=== PATIENT | female | born 1985 | race Caucasian/White ===

== ENCOUNTER → 2017-01-14 | Outpatient (CLI) | payer BC, OTHER ==
[~2017-01-14] MED LIST: MEGE20TA3 PO; OMEP40CA2 PO
[2017-01-14 19:28] LABS: BASO % 0.3 % (0.0-1.0); EOS # 0.1 K/mm3 (0.0-0.50); EOS % 1.1 % (0.0-3.0); LARGE UNSTAINED CELL # 0.1 K/mm3 (0.0-0.4); LARGE UNSTAINED CELL % 1.5 % (0.0-4.0); LYMPH % 33.5 % (24.0-44.0); MEAN CORPUSCULAR HEMOGLOBIN 32.4 pg (27.0-33.0); MEAN CORPUSCULAR HGB CONC 34.5 g/dl (32.0-36.5); MEAN CORPUSCULAR VOLUME 93.9 fl (80.0-96.0); MONO # 0.6 K/mm3 (0.0-0.8); MONO % 6.7 % (0.0-5.0); NEUTROPHILS # 4.9 K/mm3 (1.8-7.7); NEUTROPHILS % 56.8 % (36.0-66.0); PLATELET COUNT, AUTOMATED 283 k/mm3 (150-450); RED CELL DISTRIBUTION WIDTH 12.9 % (11.5-14.5); WHITE BLOOD COUNT 8.6 K/mm3 (4.0-10.0)
[2017-01-14 21:44] LABS: ALBUMIN 4.3 GM/DL (3.2-5.2); ALBUMIN/GLOBULIN RATIO 1.26 (1.00-1.93); ALKALINE PHOSPHATASE 96 U/L (45-117); ALT/SGPT 29 U/L (12-78); ANION GAP 10 MEQ/L (8-16); AST/SGOT 14 U/L (15-37); BILIRUBIN,TOTAL 0.5 MG/DL (0.2-1.0); BLOOD UREA NITROGEN 8 MG/DL (7-18); CALCIUM LEVEL 9.1 MG/DL (8.5-10.1); CARBON DIOXIDE LEVEL 25 MEQ/L (21-32); CHLORIDE LEVEL 109 MEQ/L (98-107); CREATININE FOR GFR 0.77 MG/DL (0.55-1.02); FREE T4 1.02 NG/DL (0.76-1.46); GLOMERULAR FILTRATION RATE > 60.0 (>60); GLUCOSE, FASTING 85 MG/DL (70-105); POTASSIUM SERUM 4.6 MEQ/L (3.5-5.1); SODIUM LEVEL 144 MEQ/L (136-145); TOTAL PROTEIN 7.7 GM/DL (6.4-8.2)
== END ==
LOC: M SMT 13:49
PROVIDERS: ATTEND Family Medicine
DX: R53.83 Other fatigue (principal)

== ENCOUNTER → 2017-01-28 | Outpatient (CLI) | payer OTHER ==
--- NOTE | 2017-01-28 08:15 | REP ---
Right upper quadrant sonography: History: Right upper quadrant pain. Findings: Scanning through right upper quadrant of the abdomen demonstrates a normal sized thin-walled gallbladder containing a 1.2 cm mobile calculus consistent with cholelithiasis. The common bile duct is normal measuring 0.2 cm in greatest diameter. No focal liver lesion is seen. Limited views of the pancreas show no abnormality. There is no evidence of ascites or right renal abnormality. The right kidney measures 12.0 x 5.3 x 4.3 cm. Impression: Cholelithiasis. Signed by Wilner Hope MD 01/28/2017 04:21 P
== END ==
LOC: M RAD 06:57
PROVIDERS: ATTEND Family Medicine
DX: R10.9 Unspecified abdominal pain (principal)

== ENCOUNTER 2017-03-05 12:37 | Day surgery (SDC) | payer OTHER ==
[~2017-03-05] VITALS: Ht 160 cm; Wt 93.0 kg
[2017-03-05] MEDS ORDERED: LR 1,000 ML IV ONE (13:00)
[2017-03-05] MEDS ORDERED: ceFAZolin SOD 1 GM in D5W MINI-BAG PLUS 50 ML IV ONE (13:00)
[2017-03-05 13:58] LABS: CONTROL LINE UCG INT CTR LINE PRESENT
[2017-03-05] MEDS ORDERED: BUPIVACAINE/EPIN 0.25% 30 ML VIAL As Ordered ONE (14:52)
[2017-03-05] MEDS ORDERED: dexameTHASONE 4 MG/ML 1ML VIAL (J1100) As Ordered ONE (15:31)
[2017-03-05] MEDS ORDERED: LIDOCAINE 2% INJ 100 MG/5 ML SDV (FOR ANES.) As Ordered ONE (15:31)
[2017-03-05] MEDS ORDERED: fentaNYL 250 MCG/5 ML INJECTION (J3010) As Ordered ONE (15:31)
[2017-03-05] MEDS ORDERED: ONDANSETRON 4MG/2ML VIAL (J2405) As Ordered ONE (15:31)
[2017-03-05] MEDS ORDERED: ROCURONIUM BROMIDE 50 MG/5 ML VIAL/SYRINGE As Ordered ONE ×2 (15:31→15:35)
[2017-03-05] MEDS ORDERED: PROPOFOL 200 MG/20 ML VIAL As Ordered ONE ×2 (15:31→16:19)
[2017-03-05] MEDS ORDERED: KETOROLAC 60 MG/2 ML VIAL (J1885) As Ordered ONE (15:31)
[2017-03-05] MEDS ORDERED: MIDAZOLAM INJ 2 MG/2 ML VIAL (J2250) As Ordered ONE (15:31)
[2017-03-05] MEDS ORDERED: NEOSTIGMINE 1MG/ML 5 ML SYRINGE (J2710) As Ordered ONE (15:45)
[2017-03-05] MEDS ORDERED: GLYCOPYRROLATE INJ 0.2 MG/ML 2 ML VIAL As Ordered ONE (15:45)
[2017-03-05] MEDS ORDERED: fentaNYL 100 MCG/2 ML INJECTION (J3010) As Ordered ONE (16:18)
[2017-03-05] MEDS ORDERED: ONDANSETRON 4MG/2ML VIAL (J2405) IV PRN ×2 (17:00→17:15)
[2017-03-05] MEDS ORDERED: LR 1,000 ML IV SCH ×2 (17:00→17:15)
[2017-03-05] MEDS ORDERED: fentaNYL 100 MCG/2 ML INJECTION (J3010) IV PRN (17:00)
[2017-03-05] MEDS: PERCOCET 5MG/325MG TAB PO PRN ×2 (17:12→18:31)
[2017-03-05] MEDS ORDERED: MORPHINE 2 MG/ML 1ML SYRINGE IV PRN (17:15)
[2017-03-05] MEDS ORDERED: NORCO, ANEXSIA 5/325MG TABLET (HYDROcodone/ACETAMINOPHEN) PO PRN (17:15)
[2017-03-05 19:30] VITALS: BP 134/74
[2017-03-05] MEDS ORDERED: KETOROLAC 30 MG/ML VIAL (J1885) IV SCH (22:00)
--- NOTE | 2017-03-19 05:31 | RO ---
DATE OF PROCEDURE: 03/05/2017 PREOPERATIVE DIAGNOSIS: Symptomatic gallstones. POSTOPERATIVE DIAGNOSIS: Symptomatic gallstones. PROCEDURE: Laparoscopic cholecystectomy. SURGEON: Serge Og MD DIAMOND DIE DRILLER: ANESTHESIA: General endotracheal anesthesia ESTIMATED BLOOD LOSS: Minimal. FLUIDS: Crystalloid. DESCRIPTION OF PROCEDURE: The patient was brought to the operating room and was given general anesthesia. After adequate anesthesia and preoperative antibiotics were given, the patient was prepped and draped in the usual sterile fashion. Next, a supraumbilical incision was made with skin knife. Blunt dissection was carried down to fascia. Fascia was grasped with Tran clamps, elevated and a Veress needle placed into the abdominal cavity, insufflated to 15 mm pressure. A dilating 10 mm trocar was placed at the umbilicus and under direct visualization an epigastric and two lateral trocars were placed. Next, the gallbladder was seen, grasped and retracted superiorly. There were some adhesions of the omentum up against the liver edge, which was taken down with hook cautery, as well as omentum up against the neck of the gallbladder, which was taken down with hook cautery. Eventually this was cleared of surrounding peritoneum laterally and then working anteriorly up to where the cystic artery was well visualized. Once the neck of the gallbladder was well visualized, the cystic artery was well visualized, further dissection on the lateral aspect was performed and then a good window behind the neck of the gallbladder was created and eventually after dissecting out these areas with hook cautery as well as some gentle blunt dissection, critical view of safety was appreciated. Once this was achieved, the cystic artery was clipped proximally and distally and transected, and then an even larger view posterior to the neck of the gallbladder was visualized and this was followed distally down onto the cystic duct/neck of the gallbladder area further to where the cystic duct tapered quite nicely after coming off the neck of the gallbladder. This was clipped proximally, distally and transected, and then the gallbladder was taken from the gallbladder bed using electrocautery. This was placed in an EndoCatch bag, brought out through the umbilical site. The right upper quadrant was copiously irrigated until clear. All incisions were closed for with #4-0 Vicryl once the umbilical site was closed with #0 Vicryl on the fascial layer, and Steri-Strips and a dry sterile dressing were applied. The patient was awakened, extubated, brought to the recovery room awake, alert and hemodynamically stable. Sponge and needle counts correct times two.
== END 2017-03-05 19:45 | disposition home or self-care (01) ==
LOC: M SDC 12:37
PROVIDERS: ATTEND Surgery
DX: K80.20 Calculus of gallbladder without cholecystitis without obstruction (principal); K21.9 Gastro-esophageal reflux disease without esophagitis; Z79.899 Other long term (current) drug therapy
CPT/HCPCS: 47562; 84703; 88304; A6024; J0690; J1100; J1885; J2250; J2405; J2710; J3010

== ENCOUNTER → 2018-02-14 | Outpatient (REF) | payer SELFPAY | LOC: M LAB REF 15:04 | DX: R10.84 Generalized abdominal pain (principal); R19.5 Other fecal abnormalities ==

== ENCOUNTER → 2018-04-30 | Outpatient (CLI) | payer OTHER | LOC: M SMT 14:16 | DX: R19.7 Diarrhea, unspecified (principal); R10.9 Unspecified abdominal pain; R14.0 Abdominal distension (gaseous); K62.5 Hemorrhage of anus and rectum; Z53.8 Procedure and treatment not carried out for other reasons ==

== ENCOUNTER → 2018-05-01 | Outpatient (CLI) | payer OTHER ==
[2018-05-01 17:29] LABS: C REACTIVE PROTEIN QUANTITATIV < 0.30 MG/DL (0.00-0.30)
[2018-05-01 17:57] LABS: ERYTHROCYTE SEDIMENTATION RATE 8 mm/hr (0-20)
[2018-05-06 00:07] LABS: ANCA-ATYPICAL <1:20 titer (Neg:<1:20); ANTI-SACCHAROMYCES CEREV. IgA <20.0 Units (0.0-24.9); ANTI-SACCHAROMYCES CEREV. IgG <20.0 Units (0.0-24.9); CYTOPLASMIC NEUTROP AB ANCA-C <1:20 titer (Neg:<1:20); PERINUCLEAR AB ANCA-P <1:20 titer (Neg:<1:20); TISSUE TRANSGLUTAMINASE IgA <2 U/mL (0-3)
== END ==
LOC: M SMT 14:14
DX: R19.7 Diarrhea, unspecified (principal); R10.9 Unspecified abdominal pain; R14.0 Abdominal distension (gaseous); K62.5 Hemorrhage of anus and rectum
CPT/HCPCS: 82784

== ENCOUNTER 2018-12-02 11:29 | Emergency (ER) | payer OTHER ==
[~2018-12-02] VITALS: Ht 160 cm; Wt 90.8 kg
[2018-12-02] MEDS ORDERED: AUGM875T28 PO (14:33)
[2018-12-02 14:37] VITALS: BP 125/77
== END 2018-12-02 14:42 | disposition home or self-care (01) ==
LOC: M ED 11:29
DX: S01.311A Laceration without foreign body of right ear, initial encounter (principal); S01.511A Laceration without foreign body of lip, initial encounter; S00.83XA Contusion of other part of head, initial encounter; Y04.0XXA Assault by unarmed brawl or fight, initial encounter; Y92.218 Other school as the place of occurrence of the external cause; Y93.89 Activity, other specified; Y99.0 Civilian activity done for income or pay; Z79.818 Long term (current) use of other agents affecting estrogen receptors and estrogen levels; Z79.899 Other long term (current) drug therapy

== ENCOUNTER → 2020-05-05 | Outpatient (REF) | payer OTHER ==
[~2020-05-05] MED LIST changes: +AUGM875T28 PO; -OMEP40CA2 PO; +OMEP40CA97 PO
[2020-05-05 16:31] LABS: HEMOGLOBIN 12.7 g/dl (12.0-15.5); MEAN CORPUSCULAR HEMOGLOBIN 30.5 pg (27.0-33.0); MEAN CORPUSCULAR HGB CONC 32.6 g/dl (32.0-36.5); MEAN CORPUSCULAR VOLUME 93.5 fl (80.0-96.0); PLATELET COUNT, AUTOMATED 307 10^3/uL (150-450); RED BLOOD COUNT 4.17 10^6/uL (4.00-5.40); WHITE BLOOD COUNT 10.3 10^3/uL (4.0-10.0)
[2020-05-05 17:25] LABS: GLUCOSE CHALLENGE TEST 1 HOUR 95 MG/DL (LESS THAN 140)
[2020-05-05 18:20] LABS: HEPATITIS C VIRUS ABY INDEX 0.1 INDEX (<0.8); HIV 1&2 SCREEN CENTAUR NEGATIVE (NEGATIVE)
== END ==
LOC: M PLALAB 12:36
PROVIDERS: ATTEND Obstetrics & Gynecology
DX: O99.211 Obesity complicating pregnancy, first trimester (principal)

== ENCOUNTER → 2020-05-31 | Outpatient (REF) | payer OTHER | LOC: M SFHCWAGY 09:49 | PROVIDERS: ATTEND Obstetrics & Gynecology | DX: Z34.02 Encounter for supervision of normal first pregnancy, second trimester (principal) ==

== ENCOUNTER → 2020-06-06 | Outpatient (REF) | payer OTHER | LOC: M SFHCWAGY 16:55 | PROVIDERS: ATTEND Obstetrics & Gynecology | DX: Z34.02 Encounter for supervision of normal first pregnancy, second trimester (principal); Z3A.00 Weeks of gestation of pregnancy not specified ==

== ENCOUNTER → 2020-07-11 | Outpatient (CLI) | payer OTHER ==
--- NOTE | 2020-07-11 13:01 | REP ---
INDICATION: ANATOMY COMPARISON: None. TECHNIQUE: Transabdominal obstetrical ultrasound with color Doppler evaluation. FINDINGS: Examination demonstrates a single live intrauterine in transverse (head to maternal left) presentation. motion is identified by technologist. Placenta is noted anterior and grade 0 without evidence for placenta previa or abruption. Amniotic fluid volume is normal. Cervix measures 3.4 cm in length and appears closed.. Gestational age by LMP 20 weeks 3 days with BERNARDA 11/25/2020. Gestational age by current measurements 20 weeks 3 days with BERNARDA 11/25/2020. FHR equals 158 beats per minute. BPD: 4.9 cm 20 weeks 5 days HC: 18.1 cm 20 weeks 3 days AC: 15.2 cm 20 weeks 3 days FL: 3.3 cm 20 weeks 3 days HL: 3.1 cm 20 weeks 3 days HC/AC: 1.19 Estimated weight 354 grams (48thpercentile). Anatomical assessment demonstrates normal structures including cranium, choroid plexus, cavum, cerebellum/posterior fossa, facial features, lungs, diaphragm, stomach, cord insertion/three-vessel cord, kidneys/bladder, and extremities. Limited evaluation of the heart and spine. IMPRESSION: Single live intrauterine in transverse lie demonstrating appropriate estimated weight and growth. Limited evaluation of the heart and spine. Remainder of the anatomical assessment is complete and normal. <Electronically signed by Jorge Slater > 07/11/20 [id number]
== END ==
LOC: M WHC 09:53
PROVIDERS: ATTEND Obstetrics & Gynecology
DX: Z34.82 Encounter for supervision of other normal pregnancy, second trimester (principal)

== ENCOUNTER → 2020-07-26 | Outpatient (CLI) | payer OTHER | LOC: M WHC 13:12 | PROVIDERS: ATTEND Obstetrics & Gynecology | DX: Z34.92 Encounter for supervision of normal pregnancy, unspecified, second trimester (principal); Z3A.22 22 weeks gestation of pregnancy; Z53.9 Procedure and treatment not carried out, unspecified reason ==

== ENCOUNTER → 2020-08-01 | Outpatient (CLI) | payer OTHER ==
--- NOTE | 2020-08-02 07:09 | REP ---
INDICATION: F/U ANATOMY COMPARISON: 07/11/2020 TECHNIQUE: Transabdominal obstetrical ultrasound with color Doppler evaluation. FINDINGS: Examination demonstrates a single live intrauterine in cephalic presentation. motion is identified by technologist. Placenta is noted anterior and grade 1 without evidence for placenta previa or abruption. Amniotic fluid volume is normal. Cervix measures 3.3 cm in length and appears closed.. Gestational age by LMP 23 weeks 3 days with BERNARDA 11/25/2020. Gestational age by current measurements 24 weeks 2 days with BERNARDA 11/19/2020. FHR equals 134 beats per minute. Estimated weight 706 grams (90thpercentile). Anatomical assessment demonstrates normal structures including four-chamber heart/ventricular outflow tracts and spine. IMPRESSION: Single live intrauterine in cephalic presentation demonstrating appropriate interval growth. In conjunction with prior examination anatomical assessment is complete and normal. <Electronically signed by Jorge Slater > 08/02/20 [id number]
== END ==
LOC: M WHC 12:26
PROVIDERS: ATTEND Obstetrics & Gynecology
DX: Z34.92 Encounter for supervision of normal pregnancy, unspecified, second trimester (principal); Z3A.24 24 weeks gestation of pregnancy

== ENCOUNTER → 2020-08-19 | Outpatient (REF) | payer OTHER ==
[2020-08-19 15:32] LABS: HEMATOCRIT 33.7 % (36.0-47.0); HEMOGLOBIN 10.9 g/dl (12.0-15.5); MEAN CORPUSCULAR HEMOGLOBIN 31.5 pg (27.0-33.0); MEAN CORPUSCULAR HGB CONC 32.3 g/dl (32.0-36.5); MEAN CORPUSCULAR VOLUME 97.4 fl (80.0-96.0); PLATELET COUNT, AUTOMATED 252 10^3/uL (150-450); RED BLOOD COUNT 3.46 10^6/uL (4.00-5.40); WHITE BLOOD COUNT 8.4 10^3/uL (4.0-10.0)
== END ==
LOC: M PLALAB 12:53
PROVIDERS: ATTEND Obstetrics & Gynecology
DX: O99.212 Obesity complicating pregnancy, second trimester (principal)

== ENCOUNTER → 2020-10-26 | Outpatient (REF) | payer OTHER | LOC: M SFHCWAGY 12:53 | PROVIDERS: ATTEND Advanced Practice Midwife | DX: Z34.03 Encounter for supervision of normal first pregnancy, third trimester (principal); Z36.85 Encounter for antenatal screening for Streptococcus B ==

== ENCOUNTER → 2020-11-01 | Outpatient (CLI) | payer OTHER ==
--- NOTE | 2020-11-01 13:37 | REP ---
INDICATION: SIZE>DATES, GROWTH COMPARISON: 08/01/2020 TECHNIQUE: Transabdominal obstetrical ultrasound with color Doppler evaluation. FINDINGS: Examination demonstrates a single live intrauterine in cephalic presentation. motion is identified by technologist. Placenta is noted anterior and grade 2 without evidence for placenta previa or abruption. Amniotic fluid volume is normal. Cervix measures 3.0 cm in length and appears closed.. Gestational age by LMP and 1st U/S 36 weeks 4 days with BERNARDA 11/25/2020. Gestational age by current measurements 37 weeks 3 days with BERNARDA 11/19/2020. FHR equals 136 beats per minute. BPD: 9.5 cm at 30 weeks 6 days HC: 33.1 cm at 37 weeks 5 days AC: 33.2 cm at 37 weeks 0 days FL: 7.1 cm at 36 weeks 2 days HL: 6.4 cm at 37 weeks 2 days HC/AC: 1.00 Estimated weight 3130 grams (69thpercentile). DRU: 16.5 cm IMPRESSION: Single live intrauterine in cephalic presentation demonstrating appropriate estimated weight and growth. <Electronically signed by Jorge Slater > 11/01/20 [id number]
== END ==
LOC: M PLAIMG 11:31
PROVIDERS: ATTEND Advanced Practice Midwife
DX: O26.843 Uterine size-date discrepancy, third trimester (principal); Z3A.36 36 weeks gestation of pregnancy

== ENCOUNTER → 2020-11-01 | Outpatient (REF) | payer OTHER ==
[2020-11-01 18:02] LABS: CREATININE,RANDOM URINE 52.7 MG/DL; TOTAL PROTEIN,RANDOM URINE < 5.0 MG/DL (0.0-12.0)
[2020-11-01 18:03] LABS: ALT/SGPT 13 U/L (12-78); BILIRUBIN,TOTAL 0.2 MG/DL (0.2-1.0); CREATININE FOR GFR 0.44 MG/DL (0.55-1.30); GLOMERULAR FILTRATION RATE > 60.0 (>60); LDH LACTATE DEHYDROGENASE 165 U/L (84-246); URIC ACID 3.9 MG/DL (2.6-6.0)
[2020-11-01 18:14] LABS: HEMATOCRIT 35.1 % (36.0-47.0); HEMOGLOBIN 11.6 g/dl (12.0-15.5); MEAN CORPUSCULAR HEMOGLOBIN 30.8 pg (27.0-33.0); MEAN CORPUSCULAR VOLUME 93.1 fl (80.0-96.0); PLATELET COUNT, AUTOMATED 219 10^3/uL (150-450); RED BLOOD COUNT 3.77 10^6/uL (4.00-5.40); WHITE BLOOD COUNT 7.7 10^3/uL (4.0-10.0)
[2020-11-01 18:26] LABS: PROTEIN, URINE AUTO NEGATIVE (NEGATIVE)
== END ==
LOC: M PLALAB 14:46
PROVIDERS: ATTEND Obstetrics & Gynecology
DX: O16.9 Unspecified maternal hypertension, unspecified trimester (principal)

== ENCOUNTER → 2020-11-18 | Outpatient (CLI) | payer OTHER | LOC: M LABSMTC 13:59 | PROVIDERS: ATTEND Specialist | DX: Z11.52 Encounter for screening for COVID-19 (principal); Z3A.39 39 weeks gestation of pregnancy ==

== ENCOUNTER → 2020-11-25 | Outpatient (CLI) | payer OTHER | LOC: M LABSMTC 14:02 | PROVIDERS: ATTEND Specialist | DX: Z20.822 Contact with and (suspected) exposure to COVID-19 (principal) ==

== ENCOUNTER 2020-11-28 06:10 | Inpatient (IN) | payer OTHER ==
[2020-11-28] VITALS (32 sets, daily range): BP systolic 109–156; BP diastolic 53–88
[~2020-11-28] VITALS: Ht 160 cm; Wt 118.0 kg
[2020-11-28] MEDS ORDERED: PRENTAB9 PO (07:00)
[2020-11-28] MEDS ORDERED: ZOLO25TA PO (07:08)
[2020-11-28] MEDS ORDERED: UNIS25TA3 PO (07:11)
[2020-11-28] MEDS ORDERED: ACET325C5 PO (07:11)
[2020-11-28] MEDS ORDERED: PROBCAP14 PO (07:11)
[2020-11-28] MEDS ORDERED: CLAR5TAB11 PO (07:11)
--- NOTE | 2020-11-28 07:50 | IPNPDOC ---
Text Note Date of Service The patient was seen on 11/28/20. NOTE Triage Note Franci is a 35yo with SIUP at 40w3d by lmp c/w 10wk u/s presenting to L&D for painful ctx. She states they started around 0300 this morning and are getting stronger, becoming more "unbearable". No LOF, no vaginal bleeding. Feels good movement. PMhx/PNC complicated by obesity (starting BMI 36), anxiety on zoloft and buspar, palpitations referred to cardiology Vitals wnl, afebrile Gen: WDWN, breathing with ctx Abdomen: soft, gravid, NTTP SCE: 2/80/-2, mid, soft Cat I FHRT with bl 130, +accels, -decels, mod ursula [place]: difficult to trace Assessment: Franci is a 35yo with SIUP at 40w3d by lmp c/w 10wk u/s having ctx, possibly in early labor. Vitals wnl, exam benign. Reassuring status. SCE 2/80/-2. Plan: -Re-check SCE in 2 hours, if there is cervical change, will admit -CEFM -vitals standard of care -report given to CNM Hao at change of shift Génesis Myles MD VS,Micheal, I+O VSMicheal I+O Vital Signs Date Time Temp Pulse Resp B/P (MAP) Pulse Ox O2 Delivery O2 Flow Rate FiO2 11/28/20 06:40 97.8 82 18 137/75 (95) Génesis Myles MD November 28, 2020 07:50
[2020-11-28] MEDS ORDERED: LACTATED RINGER'S 1000 ML IV STA (11:12)
[2020-11-28] MEDS ORDERED: TRANEXAMIC ACID INJection 1,000 MG in NS 100 ML IV PRN (11:15)
[2020-11-28] MEDS ORDERED: CARBOPROST TROMETHAMINE 250 MCG/ML AMP IM PRN (11:15)
[2020-11-28] MEDS ORDERED: LIDOCAINE 1% MDV 20ML VIAL INFIL PRN (11:15)
[2020-11-28] MEDS ORDERED: METHYLERGONOVINE MALEATE 0.2 MG/ML VIAL (J2210) IM PRN (11:15)
--- NOTE | 2020-11-28 11:19 | HPEPDOC ---
Obstetrical History & Physical General Date of Admission 11/28/20 Primary Care Physician: JHONATHAN WILSON CNM History of Present Illness Franci is a 35-year-old female who is a at 40.3 weeks gestation with an BERNARDA of 11/25/20 based on her LMP. She initiated care in her first trimester with [facility]. Her has been complicated by obesity, excessive weight gain, and anxiety. She was started on Zoloft and Buspar for her anxiety. Weight gain was greater than 50 lbs. She presents to L&D with complaints of contractions. She reports active movement. She denies leaking of fluid or vaginal bleeding. Chief Complaint: Active Labor Information Provided By: Patient Age: 35 : 1 Term: 0 Pre-term: 0 Abortions: 0 Livin Care Care: Good Care Dating Final EDC: November 25, 2020 Final EDC by: LMP EGA at Admission: 40.3 Antepartum Course Height (inches): 34 Pre- weight (lbs.): 208 Admission Weight (lbs.): 267 Change in Weight (lbs.): 59 Past Medical History Past Obstetrical History : Past Obstetrical History: [employer]img[employer] History: Endometriosis, Human papillomavirus(HPV) Past Medical History Medical History chronic constipation endometriosis Surgical History: Dilatation and Curettage, Gallbladder, Other (left ankle surgery) Family History Significant Family History: Heart disease Social History Marital Status: Family situation: Spouse/partner home Psychosocial History: Anxiety * Smoker: non-smoker Alcohol: Denies Drugs: denies Allergies Coded Allergies: No Known Allergies (Unverified , 02/27/17) Medications Scheduled Doxylamine Succinate (Unisom Sleep Aid) 25 Mg Tablet, 1 TAB PO QPM Lactobacillus Acidophilus (Probiotic) 1 Each Capsule, 1 CAP PO TID Loratadine (Claritin) 5 Mg Tab.rapdis, 1 TAB PO DAILY for allergy symptoms No.137/Iron/Folic Acd ( Vitamin Tablet) 1 Each Tablet, 1 TAB PO DAILY Sertraline Hcl (Zoloft) 25 Mg Tablet, 25 MG PO DAILY Miscellaneous Medications Acetaminophen (Tylenol) 325 Mg Capsule, 325 MG PO Physical Examination Physical Examination GENERAL: Alert and oriented times three. BREAST: . ABDOMEN: Gravid and non-tender to touch. FETUS: Is vertex (VTX) by sterile vaginal examination (SVE), fetus is vertex (VTX) by David. EFW 3600 grams. LUNGS: Clear to auscultation (CTA). EXTREMITIES: 1+ pitting edema. No clonus. Deep tendon reflexes (DTRs) + 2. Vital Signs/I&O Vital Signs Date Time Temp Pulse Resp B/P (MAP) Pulse Ox O2 Delivery O2 Flow Rate FiO2 11/28/20 09:16 98.6 80 18 139/88 (105) Pertinent Laboratoy Data Blood Type: O+ RBC Antibody Screen: Negative HIV: Negative Hepatitis B: Negative Hepatitis C: Negative Rapid Plasma Reagin: Nonreactive Rubella: Immune Chlamydia/Gonorrhea: Negative Group B Streptococcus: Negative Glucose Tolerance Test: 96 Vaginal Examination Dilation: 4 cm Effacement: 100% Station: 0 Presentation: Cephalic presentation Position: Vertex (occiput) Assessment Heart Rate (FHR): 130 Variability: Moderate Accelerations: Positive Decelerations: None Tocometer Contractions: Yes Frequency: every 2-5 min. Assessment/Plan Assessment IUP at 40.3 weeks gestation active labor GBS negative Category I FHR tracing Plan Admit to L&D. OOB ad nico. Diet: clears. Group B Streptococcus (GBS) negative. Labs and intravenous (IV) per unit protocol. Anesthesia consult per patient's request. Counseled on IV Pitocin for augmentation if needed. Lactated Ringers (LR): Bolus 800 mL prior to epidural, then at 125 mL/hr. Anticipate cervical change. C-S as appropriate. JHONATHAN WILSON CNM November 28, 2020 11:19
[2020-11-28 12:52] LABS: HEMOGLOBIN 11.7 g/dl (12.0-15.5); MEAN CORPUSCULAR HEMOGLOBIN 31.1 pg (27.0-33.0); MEAN CORPUSCULAR HGB CONC 33.4 g/dl (32.0-36.5); MEAN CORPUSCULAR VOLUME 93.1 fl (80.0-96.0); PLATELET COUNT, AUTOMATED 199 10^3/uL (150-450); RED BLOOD COUNT 3.76 10^6/uL (4.00-5.40); WHITE BLOOD COUNT 8.8 10^3/uL (4.0-10.0)
[2020-11-28] MEDS ORDERED: FENTANYL 2MCG/ML ROPIVACAINE 0.2% IN 0.9% NACL 100ML IVBAG As Ordered ONE (16:51)
[2020-11-28] MEDS ORDERED: ePHEDrine SULFATE 25 MG/5 ML(5MG/ML) SYRINGE IV PRN (17:10)
[2020-11-28] MEDS ORDERED: REFRIGERATOR IV KEYS XX PRN (17:10)
[2020-11-28] MEDS ORDERED: NALOXONE INJ 0.4MG/1ML VIAL (J2310 PER 1MG) IV PRN (17:10)
[2020-11-28] MEDS ORDERED: ONDANSETRON 4MG/2ML VIAL IV PRN (17:10)
[2020-11-28] MEDS ORDERED: LACTATED RINGER'S 1000 ML IV PRN (17:10)
[2020-11-28] MEDS ORDERED: EPIDURAL COMMENT XX SCH (17:10)
[2020-11-28] MEDS ORDERED: EPIDURAL/PCA KEYS XX PRN (17:10)
[2020-11-28] MEDS ORDERED: diphenhydrAMINE 50MG/ML VIAL (J1200) IV PRN (17:10)
[2020-11-28] MEDS: FENTANYL/ROPIVACAINE/NACL BAG 100 ML EPIDURAL SCH (17:24)
[2020-11-28] MEDS: LR 1,000 ML IV SCH (17:40)
[2020-11-28] MEDS ORDERED: OXYTOCIN 30 UNITS IN 0.9% NaCl 500ML IV BAG (J2590) As Ordered ONE (19:48)
[2020-11-28] MEDS ORDERED: OXYTOCIN DRIP 30 UNITS in IV 1 EA IV SCH (19:50)
--- NOTE | 2020-11-28 20:07 | IPNPDOC ---
Obstetrical Progress Note Date of Service November 28, 2020 Subjective Patient reports she is comfortable with her epidural. Objective Vital Signs Date Time Temp Pulse Resp B/P (MAP) Pulse Ox O2 Delivery O2 Flow Rate FiO2 11/28/20 18:49 75 20 118/57 (77) 11/28/20 17:39 98.2 Assessment Heart Rate (FHR): 130 Variability: Moderate Accelerations: Positive Decelerations: None Heart Rate Tracing: Category I Tocometer Contractions: Yes Frequency: regular Sterile Vaginal Examination Dilation: 5 cm Effacement (%): 100% Station: -1 Postion/Presentation: Cephalic presentation Assessment and Plan Status: Reassuring Group B Streptococcus: Negative Anticipate: Vaginal Delivery Additional Comments IV Pitocin to be started per order as soon as we can monitor contractions. JHONATHAN WILSON CNM November 28, 2020 20:07
--- NOTE | 2020-11-28 22:45 | IPNPDOC ---
Obstetrical Progress Note Date of Service November 28, 2020 Subjective Patient is comfortable with her epidural. Objective Vital Signs Date Time Temp Pulse Resp B/P (MAP) Pulse Ox O2 Delivery O2 Flow Rate FiO2 11/28/20 22:24 72 18 141/66 (91) 11/28/20 21:12 99.7 Assessment Heart Rate (FHR): 130 Variability: Moderate Accelerations: Positive Decelerations: None Heart Rate Tracing: Category I Tocometer Contractions: Yes Frequency: other (2-7 minutes) Sterile Vaginal Examination Dilation: 5 cm (5-6 cm) Effacement (%): 100% Station: 0 Postion/Presentation: Cephalic presentation Assessment and Plan Age: 35 : 1 Term: 0 Pre-term: 0 Abortions: 0 Livin EGA at Admission: 40.3 Status: Reassuring Group B Streptococcus: Negative Anticipate: Vaginal Delivery Additional Comments Internals placed due to difficulty monitoring FHR and contractions. Moderate amount of meconium noted with AROM. Patient tolerated well. IV Pitocin to be started back up if needed for contractions to be every 2-3 minutes. JHONATHAN WILSON CNM November 28, 2020 22:45
[2020-11-28] MEDS ORDERED: SERTRALINE HCL 25 MG TABLET PO SCH (23:30)
[2020-11-29] VITALS (29 sets, daily range): BP systolic 121–166; BP diastolic 59–104
--- NOTE | 2020-11-29 00:27 | IPNPDOC ---
Obstetrical Progress Note Date of Service November 29, 2020 Subjective Patient reports she is feeling pressure and her catheter. States she doesn't tolerate pain very well. Objective Vital Signs Date Time Temp Pulse Resp B/P (MAP) Pulse Ox O2 Delivery O2 Flow Rate FiO2 11/28/20 22:55 80 18 125/64 (84) 11/28/20 21:12 99.7 Assessment Heart Rate (FHR): 125 Variability: Moderate Accelerations: Positive Decelerations: Variable Heart Rate Tracing: Category II Tocometer Contractions: Yes Frequency: regular Sterile Vaginal Examination Dilation: 8 cm Effacement (%): 100% Station: -1 Postion/Presentation: Cephalic presentation Assessment and Plan Status: Reassuring Group B Streptococcus: Negative Anticipate: Vaginal Delivery Additional Comments IV Pitocin turned down to 2 mu/min. Anesthesia notified and will be up to bolus patient for comfort. JHONATHAN WILSON CNM November 29, 2020 00:27
[2020-11-29] MEDS: LR 1,000 ML IV SCH ×2 (01:02→06:43)
[2020-11-29] MEDS: FENTANYL/ROPIVACAINE/NACL BAG 100 ML EPIDURAL SCH ×2 (06:40→08:18)
--- NOTE | 2020-11-29 12:51 | DNPDOC ---
[facility] Delivery Note Delivery Note DATE OF DELIVERY: 11/29/2020 TIME OF : 1119 GENDER: Female. APGARS: 8 and 9 WEIGHT: 3670 grams or 8 pounds 1ounces. LACERATIONS: 1MLL ANESTHESIA: epidural ESTIMATED BLOOD LOSS: 500 ml COUNTS: 5 laparotomy sponges accounted for prior to after delivery. 1 sharps removed from delivery field. DELIVERY NOTE: On 11/30/2019 07/25/2018 Mrs Manning 35-year-old 1 now para 1 had a spontaneous vaginal delivery of a liveborn female Apgars 8 and 9 was 3670 g or 8 lbs. 1 oz. Head was delivered occiput anterior (OA). Tight nuchal cord which was manually reduced, followed by delivery of the shoulders and corpus. Infant was handed to mom with a good cry. Cord was clamped times two and was cut by support person under my direction. Placenta was then drained and delivered grossly intact. A premixed bag of 500 mL of normal saline with 30 units of Pitocin was then bolused along with uterine massage until the uterus was firm. Additional Methergine and he is an inmate was given for uterine hemostasis On inspection there was a 1MLL that was repaired with 3-0 Vicryl after infusion with 1% lidocaine. On reinspection, cervix, vagina, perineum was grossly intact and hemostatic. Mom and baby in recovery on stable condition. PARIS HERNANDEZ MD. November 29, 2020 12:51
[2020-11-29] MEDS ORDERED: ANUSOL HC CREAM 30GM TOP PRN (13:00)
[2020-11-29] MEDS ORDERED: CARBOPROST TROMETHAMINE 250 MCG/ML AMP IM ONE (13:00)
[2020-11-29] MEDS ORDERED: LOPERAMIDE 2 MG CAPLET PO PRN (13:00)
[2020-11-29] MEDS ORDERED: ACETAMINOPHEN 500 MG TAB PO PRN (13:00)
[2020-11-29] MEDS ORDERED: RHOGAM 300 MCG (1500 IU) INJ (J2790) IM SCH (13:00)
[2020-11-29] MEDS ORDERED: IBUPROFEN 600MG TAB PO PRN (13:00)
[2020-11-29] MEDS ORDERED: MEASLES,MUMPS,RUBELLA VACCINE INJ (MMR-II) (90707) SC SCH (13:00)
[2020-11-29] MEDS ORDERED: MOM 30ML SUSPENSION UDC PO PRN (13:00)
[2020-11-29] MEDS ORDERED: METHYLERGONOVINE MALEATE 0.2 MG/ML VIAL (J2210) IM ONE (13:00)
[2020-11-29] MEDS ORDERED: ACETAMINOPHEN TAB 650MG DOSE (2X325MG) PO PRN (13:00)
[2020-11-29] MEDS ORDERED: METHYLERGONOVINE MALEATE 0.2 MG TAB PO PRN (13:15)
[2020-11-29] MEDS ORDERED: OXYTOCIN DRIP 30 UNITS in IV 1 EA IV SCH (13:30)
[2020-11-29] MEDS: DIBUCAINE 1% OINTMENT 30GM TOP PRN (14:53)
[2020-11-29] MEDS: IBUPROFEN 800 MG TAB PO PRN (14:54)
[2020-11-29] MEDS ORDERED: DOCUSATE SODIUM 100MG CAPSULE PO PRN (21:00)
[2020-11-30 05:50] VITALS: BP 133/74
[2020-11-30] MEDS: PRENATAL VITAMINS CHEWABLE TABLET PO SCH (07:43)
--- NOTE | 2020-11-30 07:51 | IPNPDOC ---
Progress Note Date of Service: November 30, 2020 Day#: 1 Progress Note SUBJECT: Doing well without complaints. Ambulating, voiding and pain is well-c ontrolled. Reports minimal lochia. OBJECTIVE: VITAL SIGNS: Within normal limits, afebrile. Alert and oriented times three. Abdomen: Fundus firm at U-2. Soft, NTTP. Ext: neg calf tenderness. ASSESSMENT: day #1 status post . Recovering in stable condition. PLAN: 1. Continue routine care 2. Discharge plans for tomorrow VS, I&O, 24H, Fishbone Vital Signs/I&O Vital Signs Date Time Temp Pulse Resp B/P (MAP) Pulse Ox O2 Delivery O2 Flow Rate FiO2 11/30/20 05:50 98.4 102 16 133/74 (93) 96 Room Air I&O- Last 24 Hours up to 6 AM 11/30/20 06:00 Intake Total 5478.7 ml Output Total 850 ml Balance 4628.7 ml PARIS HERNANDEZ MD. November 30, 2020 07:51
[2020-11-30 18:00] VITALS: BP 138/74
[2020-11-30] MEDS ORDERED: SERTRALINE HCL 25 MG TABLET PO SCH ×2 (22:00)
[2020-12-01 06:20] VITALS: BP 141/92
[2020-12-01] MEDS: DIBUCAINE 1% OINTMENT 30GM TOP PRN (08:02)
[2020-12-01] MEDS: PRENATAL VITAMINS CHEWABLE TABLET PO SCH (08:02)
[2020-12-01] MEDS: IBUPROFEN 800 MG TAB PO PRN (08:02)
[2021-11-29] MEDS ORDERED: SERTRALINE HCL 25 MG TABLET PO SCH (22:00)
== END 2020-12-01 10:40 | disposition home or self-care (01) | DRG 807 ==
LOC: M LDO 06:10 → M LDI 11:24 → M OBS 11-29 14:50
PROVIDERS: ADMIT Advanced Practice Midwife; ATTEND Advanced Practice Midwife
PROC: 10907ZC Drainage of Amniotic Fluid, Therapeutic from Products of Conception, Via Natural or Artificial Opening (ICD-10-PCS; 2020-11-28)
PROC: 10E0XZZ Delivery of Products of Conception, External Approach (ICD-10-PCS; principal; 2020-11-29)
PROC: 0HQ9XZZ Repair Perineum Skin, External Approach (ICD-10-PCS; 2020-11-29)
DX: O48.0 Post-term pregnancy (principal); Z37.0 Single live birth; Z3A.40 40 weeks gestation of pregnancy; O99.214 Obesity complicating childbirth; E66.9 Obesity, unspecified; Z68.36 Body mass index [BMI] 36.0-36.9, adult; O26.03 Excessive weight gain in pregnancy, third trimester; O99.344 Other mental disorders complicating childbirth; F41.9 Anxiety disorder, unspecified; O77.0 Labor and delivery complicated by meconium in amniotic fluid; O69.1XX0 Labor and delivery complicated by cord around neck, with compression, not applicable or unspecified; O70.0 First degree perineal laceration during delivery

== ENCOUNTER → 2021-04-24 | Outpatient (REF) | payer OTHER ==
[~2021-04-24] MED LIST changes: +ACET325C5 PO; +CLAR5TAB11 PO; +OMEP40CA4 PO; -OMEP40CA97 PO; +PRENTAB9 PO; +PROBCAP14 PO; +UNIS25TA3 PO; +ZOLO25TA PO
== END ==
LOC: M SFHCWAGY 13:19
PROVIDERS: ATTEND Obstetrics & Gynecology
DX: Z12.4 Encounter for screening for malignant neoplasm of cervix (principal); Z77.9 Other contact with and (suspected) exposures hazardous to health
CPT/HCPCS: 87624; G0123

== ENCOUNTER → 2021-09-21 | Outpatient (CLI) | payer OTHER | LOC: M SLEEP HO 11:41 | PROVIDERS: ATTEND Nurse Practitioner Adult Health | DX: G47.33 Obstructive sleep apnea (adult) (pediatric) (principal) ==

== ENCOUNTER → 2022-05-08 | Outpatient (REF) | payer OTHER | LOC: M PLALAB 16:34 | PROVIDERS: ATTEND Obstetrics & Gynecology | DX: Z12.4 Encounter for screening for malignant neoplasm of cervix (principal); R87.610 Atypical squamous cells of undetermined significance on cytologic smear of cervix (ASC-US) | CPT/HCPCS: 87624; G0123 ==

== ENCOUNTER → 2022-12-06 | Outpatient (CLI) | payer OTHER ==
[2022-12-06 18:04] LABS: BASO % 0.3 % (0.0-1.0); EOS # 0.1 10^3/uL (0.0-0.5); HEMATOCRIT 36.5 % (36.0-47.0); HEMOGLOBIN 12.4 g/dl (12.0-15.5); LYMPH # 2.2 10^3/uL (1.5-5.0); LYMPH % 28.6 % (24.0-44.0); MEAN CORPUSCULAR HEMOGLOBIN 31.8 pg (27.0-33.0); MEAN CORPUSCULAR VOLUME 93.6 fl (80.0-96.0); MONO # 0.4 10^3/uL (0.0-0.8); MONO % 5.2 % (2.0-8.0); NEUTROPHILS # 5.1 10^3/uL (1.5-8.5); NEUTROPHILS % 64.8 % (36.0-66.0); PLATELET COUNT, AUTOMATED 255 10^3/uL (150-450); WHITE BLOOD COUNT 7.8 10^3/uL (4.0-10.0)
[2022-12-06 19:14] LABS: GC DNA AMPLIFICATION NEGATIVE (NEGATIVE)
[2022-12-07 20:25] LABS: HIV 1&2 SCREEN NEGATIVE (NEGATIVE)
[2022-12-07 20:33] LABS: HEPATITIS C VIRUS ABY INDEX < 0.0 INDEX (<0.8)
== END ==
LOC: M PLALAB 14:35
PROVIDERS: ATTEND Specialist
DX: Z34.81 Encounter for supervision of other normal pregnancy, first trimester (principal)

== ENCOUNTER → 2022-12-06 | Outpatient (CLI) | payer OTHER ==
[2022-12-08 06:08] LABS: HEPATITIS B CORE ANTIBODY IGG Negative (Negative)
== END ==
LOC: M PLALAB 14:37
PROVIDERS: ATTEND Family Medicine
DX: Z01.84 Encounter for antibody response examination (principal)

== ENCOUNTER → 2022-12-24 | Outpatient (REF) | payer OTHER | LOC: M SFHCWAGY 15:18 | PROVIDERS: ATTEND Obstetrics & Gynecology | DX: O09.521 Supervision of elderly multigravida, first trimester (principal); Z36.89 Encounter for other specified antenatal screening; Z3A.00 Weeks of gestation of pregnancy not specified ==

== ENCOUNTER → 2023-02-12 | Outpatient (CLI) | payer OTHER | LOC: M WHC 14:27 | PROVIDERS: ATTEND Obstetrics & Gynecology | DX: Z34.92 Encounter for supervision of normal pregnancy, unspecified, second trimester (principal); Z3A.20 20 weeks gestation of pregnancy ==

== ENCOUNTER → 2023-04-24 | Outpatient (CLI) | payer OTHER | LOC: M LAB 06:42 | PROVIDERS: ATTEND Obstetrics & Gynecology | DX: O99.810 Abnormal glucose complicating pregnancy (principal); Z3A.00 Weeks of gestation of pregnancy not specified ==

== ENCOUNTER 2023-06-05 14:26 | Outpatient (CLI) | payer OTHER ==
[~2023-06-05] VITALS: Ht 160 cm; Wt 128.4 kg
[~2023-06-05 14:26] MED LIST changes: -BUSP5TA PO; -FOLI400T13 PO; -HYDR50TA70 PO; -UNIS25TA5 PO; -VITAD400CA FT; -ZOLO50TA PO
[2023-06-05 14:52] VITALS: BP 135/69
[2023-06-05] MEDS ORDERED: BETAMETHASONE SOLUSPAN 6MG/ML 5ML VIAL IM SCH (15:00)
[2023-06-05] MEDS ORDERED: HYDR50TA70 PO (15:01)
[2023-06-05] MEDS ORDERED: VITAD400CA FT (15:01)
[2023-06-05] MEDS ORDERED: FOLI400T13 PO (15:01)
[2023-06-05] MEDS ORDERED: BUSP5TA PO (15:01)
[2023-06-05] MEDS ORDERED: ZOLO50TA PO (15:01)
[2023-06-05] MEDS ORDERED: UNIS25TA5 PO (15:01)
[2023-06-05 15:04] LABS: HEMATOCRIT 32.9 % (36.0-47.0); HEMOGLOBIN 11.2 g/dl (12.0-15.5); MEAN CORPUSCULAR HEMOGLOBIN 30.5 pg (27.0-33.0); MEAN CORPUSCULAR VOLUME 89.6 fl (80.0-96.0); PLATELET COUNT, AUTOMATED 175 10^3/uL (150-450); RED BLOOD COUNT 3.67 10^6/uL (4.00-5.40); WHITE BLOOD COUNT 7.4 10^3/uL (4.0-10.0)
[2023-06-05 15:10] VITALS: BP 141/65
[2023-06-05 15:36] LABS: URIC ACID 4.9 MG/DL (3.1-7.8)
[2023-06-05 15:38] LABS: LDH LACTATE DEHYDROGENASE 163 U/L (120-246)
[2023-06-05 15:39] LABS: ALT/SGPT 17 U/L (7.0-40); AST/SGOT 13 U/L (<34); BILIRUBIN,TOTAL 0.2 MG/DL (0.3-1.2); CREATININE FOR GFR 0.62 MG/DL (0.55-1.30); GLOMERULAR FILTRATION RATE > 60.0 (>60)
[2023-06-05 16:17] LABS: CREATININE,RANDOM URINE 94.7 MG/DL
[2023-06-05 16:19] LABS: TOTAL PROTEIN,RANDOM URINE < 6.0 MG/DL (0.0-14.0)
== END 2023-06-05 16:30 | disposition home or self-care (01) ==
LOC: M LDO 14:26
PROVIDERS: ATTEND Advanced Practice Midwife
DX: O13.3 Gestational [pregnancy-induced] hypertension without significant proteinuria, third trimester (principal); Z3A.36 36 weeks gestation of pregnancy
CPT/HCPCS: 36415; 59025; 82247; 82570; 83615; 84156; 84450; 84460; 84550; 85027; 96372; G0463; J0702

== ENCOUNTER → 2023-06-05 | Outpatient (CLI) | payer OTHER ==
[~2023-06-05] MED LIST changes: +BUSP5TA PO; +FOLI400T13 PO; +HYDR50TA70 PO; +UNIS25TA5 PO; +VITAD400CA FT; +ZOLO50TA PO
== END ==
LOC: M WHC 11:30
PROVIDERS: ATTEND Obstetrics & Gynecology
DX: O26.843 Uterine size-date discrepancy, third trimester (principal); Z3A.36 36 weeks gestation of pregnancy

== ENCOUNTER → 2023-06-05 | Outpatient (REF) | payer OTHER | LOC: M PLALAB 13:07 | PROVIDERS: ATTEND Obstetrics & Gynecology | DX: Z34.83 Encounter for supervision of other normal pregnancy, third trimester (principal) ==

== ENCOUNTER 2023-06-06 16:40 | Outpatient (CLI) | payer OTHER ==
[~2023-06-06] VITALS: Ht 160 cm; Wt 129.3 kg
[~2023-06-06 16:40] MED LIST changes: +BUSP5TA PO; +FOLI400T13 PO; +HYDR50TA70 PO; +UNIS25TA5 PO; +VITAD400CA FT; +ZOLO50TA PO
[2023-06-06 16:57] VITALS: BP 127/66
[2023-06-06] MEDS ORDERED: BETAMETHASONE SOLUSPAN 6MG/ML 5ML VIAL IM ONE (17:00)
[2023-06-06] MEDS ORDERED: HOME MED LIST COMPLETE! XX SCH (17:05)
== END 2023-06-06 17:17 | disposition home or self-care (01) ==
LOC: M LDO 16:40
PROVIDERS: ATTEND Advanced Practice Midwife
DX: O13.3 Gestational [pregnancy-induced] hypertension without significant proteinuria, third trimester (principal); Z3A.36 36 weeks gestation of pregnancy
CPT/HCPCS: 59025; 96372; G0463; J0702

== ENCOUNTER 2023-06-10 14:17 | Inpatient (IN) | payer OTHER ==
[~2023-06-10] VITALS: Ht 160 cm; Wt 128.8 kg
[2023-06-10] MEDS ORDERED: LIDOCAINE 1% MDV 20ML VIAL INFIL PRN (14:45)
[2023-06-10] MEDS ORDERED: CARBOPROST TROMETHAMINE 250 MCG/ML AMP IM PRN (14:45)
[2023-06-10] MEDS ORDERED: TRANEXAMIC ACID INJection 1,000 MG in NS 100 ML IV PRN (14:45)
[2023-06-10] MEDS ORDERED: OXYTOCIN DRIP 30 UNITS in IV 1 EA IV PRN (14:45)
[2023-06-10] MEDS ORDERED: HOME MED LIST COMPLETE! XX SCH (15:05)
[2023-06-10 15:46] VITALS: BP 122/71
[2023-06-10] MEDS: miSOPROStol 50MCG 1/2 TABLET PO SCH ×2 (16:01→20:06)
[2023-06-10 16:10] LABS: HEMATOCRIT 33.9 % (36.0-47.0); HEMOGLOBIN 11.6 g/dl (12.0-15.5); MEAN CORPUSCULAR HEMOGLOBIN 31.2 pg (27.0-33.0); MEAN CORPUSCULAR HGB CONC 34.2 g/dl (32.0-36.5); MEAN CORPUSCULAR VOLUME 91.1 fl (80.0-96.0); PLATELET COUNT, AUTOMATED 213 10^3/uL (150-450); RED BLOOD COUNT 3.72 10^6/uL (4.00-5.40); WHITE BLOOD COUNT 8.4 10^3/uL (4.0-10.0)
[2023-06-10 16:30] LABS: URIC ACID 4.5 MG/DL (3.1-7.8)
[2023-06-10 16:32] LABS: CREATININE,RANDOM URINE 68.2 MG/DL; LDH LACTATE DEHYDROGENASE 183 U/L (120-246)
[2023-06-10 16:33] LABS: ALT/SGPT 28 U/L (7.0-40); AST/SGOT 13 U/L (<34); BILIRUBIN,TOTAL 0.2 MG/DL (0.3-1.2); CREATININE FOR GFR 0.46 MG/DL (0.55-1.30); GLOMERULAR FILTRATION RATE > 60.0 (>60)
[2023-06-10 17:20] VITALS: BP 126/78
[2023-06-10 17:25] LABS: TOTAL PROTEIN,RANDOM URINE 6.3 MG/DL (0.0-14.0)
[2023-06-10 20:08] VITALS: BP 146/70
[2023-06-10] MEDS: SERTRALINE HCL 50 MG TAB PO SCH (20:51)
[2023-06-10 21:08] VITALS: BP 133/65
[2023-06-11] VITALS (28 sets, daily range): BP systolic 116–165; BP diastolic 57–88
[2023-06-11] MEDS: miSOPROStol 50MCG 1/2 TABLET PO SCH ×2 (00:07→04:12)
[2023-06-11] MEDS ORDERED: OXYTOCIN DRIP 30 UNITS in IV 1 EA IV SCH ×2 (08:45→08:55)
[2023-06-11] MEDS ORDERED: LR 1,000 ML IV SCH (08:55)
[2023-06-11] MEDS: LR 1,000 ML IV SCH (18:58)
[2023-06-11] MEDS ORDERED: ePHEDrine SULFATE 25 MG/5 ML(5MG/ML) SYRINGE IVP PRN (19:10)
[2023-06-11] MEDS ORDERED: diphenhydrAMINE 50MG/ML VIAL IV PRN (19:10)
[2023-06-11] MEDS ORDERED: LR 500 ML IV PRN (19:10)
[2023-06-11] MEDS ORDERED: ONDANSETRON 4MG 2ML VIAL IV PRN (19:10)
[2023-06-11] MEDS ORDERED: EPIDURAL/PCA KEYS XX PRN (19:10)
[2023-06-11] MEDS ORDERED: NALOXONE INJ 0.4MG/1ML VIAL IV PRN (19:10)
[2023-06-11] MEDS ORDERED: FENTANYL/ROPIVACAINE/NACL BAG 100 ML EPIDURAL SCH (19:10)
[2023-06-11] MEDS: SERTRALINE HCL 50 MG TAB PO SCH (21:00)
[2023-06-11] MEDS ORDERED: diphenhydrAMINE 50MG/ML VIAL IV ONE ×2 (23:00→23:50)
[2023-06-12] VITALS (10 sets, daily range): BP systolic 127–150; BP diastolic 55–85; O2SAT 96–98
[2023-06-12] MEDS: LR 1,000 ML IV SCH ×4 (00:45→11:05)
[2023-06-12] MEDS ORDERED: KETOROLAC 60MG 2ML VIAL As Ordered ONE (01:59)
[2023-06-12] MEDS ORDERED: ONDANSETRON 4MG 2ML VIAL As Ordered ONE (01:59)
[2023-06-12] MEDS ORDERED: OXYTOCIN INJ 10UNITS/ML 1ML VIAL As Ordered ONE (01:59)
[2023-06-12] MEDS ORDERED: MORPHINE PRES-FREE INJ 10 MG/10 ML VIAL As Ordered ONE (02:00)
[2023-06-12] MEDS ORDERED: LIDOCAINE 2% W/EPINEPHRINE 20ML VIAL **PRES FREE As Ordered ONE (02:07)
[2023-06-12] MEDS ORDERED: ceFAZolin SOD 2 GM in IV 1 EA IV ONE (03:00)
[2023-06-12] MEDS ORDERED: ceFAZolin SOD 1 GM in D5W MINI-BAG PLUS 50 ML IV ONE (03:00)
[2023-06-12] MEDS ORDERED: AZITHROMYCIN INJ 500 MG, VIAL MATE ADAPTER 1 EACH in NS 250 ML IV ONE (03:00)
[2023-06-12] MEDS ORDERED: BICITRA 30ML SOLN UDC PO ONE (03:00)
[2023-06-12] MEDS ORDERED: OXYTOCIN DRIP 30 UNITS in IV 1 EA IV SCH (03:05)
[2023-06-12] MEDS ORDERED: RHOGAM 300MCG (1500IU) INJ IM SCH (03:05)
[2023-06-12] MEDS ORDERED: ANUSOL HC CREAM 30GM TOP PRN (03:05)
[2023-06-12] MEDS ORDERED: MOM 30ML SUSPENSION UDC PO PRN (03:05)
[2023-06-12] MEDS ORDERED: SIMETHICONE 80MG CHEW TAB PO PRN (03:05)
[2023-06-12] MEDS ORDERED: PERCOCET 5MG/325MG TAB PO PRN ×2 (03:05)
[2023-06-12] MEDS ORDERED: ONDANSETRON 4MG 2ML VIAL IV PRN (03:05)
[2023-06-12] MEDS ORDERED: ePHEDrine SULFATE 25 MG/5 ML(5MG/ML) SYRINGE As Ordered ONE (03:38)
[2023-06-12] MEDS ORDERED: PERCOCET PO (04:07)
[2023-06-12] MEDS ORDERED: COLA100C5 PO (04:07)
[2023-06-12] MEDS ORDERED: IBUP80TA PO (04:07)
[2023-06-12] MEDS: PRENATAL VITAMINS CHEWABLE TABLET PO SCH (08:29)
[2023-06-12] MEDS: FERROUS SULFATE 325MG TAB PO SCH (08:29)
[2023-06-12] MEDS: DOCUSATE SODIUM 100MG CAPSULE PO SCH ×2 (08:30→21:02)
[2023-06-12] MEDS: KETOROLAC 30 MG/ML 1ML VIAL IV SCH ×3 (08:31→19:28)
[2023-06-12] MEDS: ENOXAPARIN 30MG/0.3ML SYRINGE (J1650 PER 10MG) SC SCH ×2 (12:35→21:02)
[2023-06-12] MEDS: SERTRALINE HCL 50 MG TAB PO SCH (21:02)
[2023-06-13] VITALS (7 sets, daily range): BP systolic 132–147; BP diastolic 69–84; TEMP 97.5; O2SAT 97–99
[2023-06-13] MEDS ORDERED: UNRESOLVED CLARIFICATION ENTRY XX SCH (00:01)
[2023-06-13] MEDS: busPIRone 5 MG TAB PO SCH ×3 (02:38→20:16)
[2023-06-13] MEDS: IBUPROFEN 800 MG TAB PO SCH ×3 (04:25→20:16)
[2023-06-13 07:38] LABS: HEMATOCRIT 28.5 % (36.0-47.0); HEMOGLOBIN 9.5 g/dl (12.0-15.5); MEAN CORPUSCULAR HEMOGLOBIN 30.9 pg (27.0-33.0); MEAN CORPUSCULAR HGB CONC 33.3 g/dl (32.0-36.5); MEAN CORPUSCULAR VOLUME 92.8 fl (80.0-96.0); PLATELET COUNT, AUTOMATED 176 10^3/uL (150-450); RED BLOOD COUNT 3.07 10^6/uL (4.00-5.40); WHITE BLOOD COUNT 9.7 10^3/uL (4.0-10.0)
[2023-06-13] MEDS: FERROUS SULFATE 325MG TAB PO SCH (08:57)
[2023-06-13] MEDS: DOCUSATE SODIUM 100MG CAPSULE PO SCH ×2 (08:57→20:16)
[2023-06-13] MEDS: PRENATAL VITAMINS CHEWABLE TABLET PO SCH (08:57)
[2023-06-13] MEDS: ENOXAPARIN 30MG/0.3ML SYRINGE (J1650 PER 10MG) SC SCH ×2 (08:58→20:17)
[2023-06-13] MEDS ORDERED: LORazepam 2 MG/ML 1ML VIAL IV PRN (11:50)
[2023-06-13] MEDS: SERTRALINE HCL 50 MG TAB PO SCH (20:16)
[2023-06-13] MEDS ORDERED: LORazepam 2 MG/ML 1ML VIAL IV STA (20:37)
[2023-06-13] MEDS ORDERED: hydrOXYzine 50 MG TAB PO SCH (21:00)
[2023-06-14] MEDS: IBUPROFEN 800 MG TAB PO SCH ×2 (04:59→11:45)
[2023-06-14 06:00] VITALS: BP 126/61; O2SAT 98
[2023-06-14] MEDS ORDERED: HYDR50TA70 PO ×2 (08:06→11:14)
[2023-06-14 08:13] VITALS: BP 126/61; TEMP 98.5; O2SAT 98
[2023-06-14] MEDS ORDERED: MEASLES,MUMPS,RUBELLA VACCINE INJ (MMR-II) SC.IMMUN ONE (09:00)
[2023-06-14 10:00] VITALS: BP 140/63; O2SAT 98
[2023-06-14] MEDS: PRENATAL VITAMINS CHEWABLE TABLET PO SCH (10:43)
[2023-06-14] MEDS: FERROUS SULFATE 325MG TAB PO SCH (10:43)
[2023-06-14] MEDS: busPIRone 5 MG TAB PO SCH (10:43)
[2023-06-14] MEDS: DOCUSATE SODIUM 100MG CAPSULE PO SCH (10:43)
[2023-06-14] MEDS: ENOXAPARIN 30MG/0.3ML SYRINGE (J1650 PER 10MG) SC SCH (10:44)
[2023-06-14] MEDS ORDERED: BUSP5TA PO (11:14)
== END 2023-06-14 13:22 | disposition home or self-care (01) | DRG 788 ==
LOC: M LDI 14:17 → M OBS 06-12 05:40
PROVIDERS: ADMIT Obstetrics & Gynecology; ATTEND Obstetrics & Gynecology
PROC: 3E0P7GC Introduction of Other Therapeutic Substance into Female Reproductive, Via Natural or Artificial Opening (ICD-10-PCS; 2023-06-10)
PROC: 10907ZC Drainage of Amniotic Fluid, Therapeutic from Products of Conception, Via Natural or Artificial Opening (ICD-10-PCS; 2023-06-11)
PROC: 10D00Z1 Extraction of Products of Conception, Low, Open Approach (ICD-10-PCS; principal; 2023-06-12 03:15)
DX: O13.4 Gestational [pregnancy-induced] hypertension without significant proteinuria, complicating childbirth (principal); O62.0 Primary inadequate contractions; O66.40 Failed trial of labor, unspecified; Z37.0 Single live birth; Z3A.37 37 weeks gestation of pregnancy

== ENCOUNTER → 2023-11-11 | Outpatient (REF) | payer OTHER ==
[~2023-11-11] MED LIST changes: +COLA100C5 PO; +IBUP80TA PO; +PERCOCET PO
== END ==
LOC: M PLALAB 15:52
PROVIDERS: ATTEND Obstetrics & Gynecology
DX: Z12.4 Encounter for screening for malignant neoplasm of cervix (principal)

== ENCOUNTER → 2024-01-01 | Outpatient (CLI) | payer OTHER | LOC: M PLAIMG 09:58 | PROVIDERS: ATTEND Family Medicine | DX: M54.50 Low back pain, unspecified (principal); M25.561 Pain in right knee ==

== ENCOUNTER → 2024-01-30 | Outpatient (CLI) | payer OTHER ==
[2024-01-30 16:12] LABS: FREE T4 0.67 NG/DL (0.89-1.76)
[2024-01-30 16:13] LABS: THYROID STIMULATING HORMONE 1.787 uIU/ML (0.55-4.78)
== END ==
LOC: M PLALAB 14:16
PROVIDERS: ATTEND Family Medicine
DX: R94.6 Abnormal results of thyroid function studies (principal)

== ENCOUNTER 2024-06-16 07:58 | Emergency (ER) | payer OTHER ==
[~2024-06-16] VITALS: Ht 167.6 cm; Wt 121.1 kg
[2024-06-16] MEDS: KETOROLAC 30 MG/ML 1ML VIAL IM ONE (09:44)
[2024-06-16] MEDS: DERMABOND TOPICAL SKIN ADHESIVE TOP ONE (10:00)
[2024-06-16 10:46] VITALS: BP 124/74; TEMP 98.3; O2SAT 97
== END 2024-06-16 10:48 | disposition home or self-care (01) ==
LOC: M ED 07:58
DX: S50.312A Abrasion of left elbow, initial encounter (principal); W00.9XXA Unspecified fall due to ice and snow, initial encounter; Y92.9 Unspecified place or not applicable; Y93.9 Activity, unspecified; Y99.0 Civilian activity done for income or pay; F41.9 Anxiety disorder, unspecified; K21.9 Gastro-esophageal reflux disease without esophagitis; Z79.899 Other long term (current) drug therapy
CPT/HCPCS: 73080; 96372; 99284; J1885

== ENCOUNTER 2024-06-19 09:30 | Emergency (ER) | payer OTHER ==
[~2024-06-19] VITALS: Ht 160 cm; Wt 122.4 kg
[2024-06-19 09:32] VITALS: BP 165/90; TEMP 98.5; O2SAT 100
[2024-06-19] MEDS ORDERED: DEBL1TAB (09:38)
[2024-06-19] MEDS ORDERED: ZOLO100T (09:38)
[2024-06-19] MEDS ORDERED: BACI500O8 TOP (11:27)
[2024-06-19] MEDS ORDERED: OXYM15SP2 (11:27)
[2024-06-19] MEDS: NEOSPORIN OINT 0.9 GM PKT TOP ONE (11:32)
== END 2024-06-19 11:56 | disposition home or self-care (01) ==
LOC: M ED 09:30
DX: S00.33XA Contusion of nose, initial encounter (principal); S00.31XA Abrasion of nose, initial encounter; W51.XXXA Accidental striking against or bumped into by another person, initial encounter; Y92.9 Unspecified place or not applicable; Y93.9 Activity, unspecified; Y99.0 Civilian activity done for income or pay; K21.9 Gastro-esophageal reflux disease without esophagitis; F41.9 Anxiety disorder, unspecified; Z79.899 Other long term (current) drug therapy

== ENCOUNTER → 2024-11-13 | Outpatient (REF) | payer OTHER ==
[~2024-11-13] MED LIST changes: +BACI500O8 TOP; +DEBL1TAB; +OXYM15SP2; +ZOLO100T
[2024-11-18 12:07] LABS: HPV APTIMA Not Detected (Not Detected)
== END ==
LOC: M PLALAB 15:19
PROVIDERS: ATTEND Obstetrics & Gynecology
DX: R87.610 Atypical squamous cells of undetermined significance on cytologic smear of cervix (ASC-US) (principal)
CPT/HCPCS: 87624; G0123

== ENCOUNTER → 2025-04-28 | Outpatient (CLI) | payer OTHER ==
[2025-04-28 15:55] LABS: PLATELET COUNT, AUTOMATED 308 10^3/uL (150-450)
[2025-04-28 16:05] LABS: ERYTHROCYTE SEDIMENTATION RATE 10 mm/hr (0-20)
[2025-04-28 16:15] LABS: C REACTIVE PROTEIN QUANTITATIV < 0.50 MG/DL (<1.0); CALCIUM LEVEL 8.3 MG/DL (8.5-10.1); CARBON DIOXIDE LEVEL 27 MMOL/L (20-31); CHLORIDE LEVEL 105 MMOL/L (98-107); CREATININE FOR GFR 0.59 MG/DL (0.55-1.30); GLOMERULAR FILTRATION RATE > 90.0 (>60); POTASSIUM SERUM 3.9 MMOL/L (3.5-5.1); SODIUM LEVEL 142 MMOL/L (136-145)
[2025-04-28 16:34] LABS: ATYPICAL LYMPH 5 % (0-5); EOSINOPHILS 1 % (0-3); LYMPHOCYTES 43 % (16-44); MONOCYTES 2 % (0-5); NEUTROPHILS 49 % (28-66)
[2025-04-28 16:35] LABS: PLATELET ESTIMATE NORMAL (NORMAL)
[2025-04-28 17:25] LABS: MONO REFLEX EBV COMP NEGATIVE (NEGATIVE)
[2025-05-03 14:50] LABS: EBV AB TO NUCLEAR ANTIGEN 480.00 U/mL (<18.00); EBV VIRAL CAPSID AG IGG 700.00 U/mL (<18.00); EBV VIRAL CAPSID AG IGM < 36.00 U/mL (<36.00)
== END ==
LOC: M PLAIMG 14:15
PROVIDERS: ATTEND Nurse Practitioner Adult Health
DX: R05.1 Acute cough (principal); R59.0 Localized enlarged lymph nodes; J02.9 Acute pharyngitis, unspecified